=== PATIENT | female | born 1975 | race Caucasian/White ===

== ENCOUNTER 2016-11-30 15:30 | Emergency (ER) | payer OTHER ==
--- NOTE | 2016-11-30 16:17 | ED AMS/SEIZURE/WEAK/DIZZY ---
History of Present Illness General Chief Complaint: General Adult Stated Complaint: PT WAS SIB FOR BLOOD WORK AND MRI Source: patient Exam Limitations: no limitations Vital Signs & Intake/Output Vital Signs & Intake/Output Vital Signs Date Time Temp Pulse Resp B/P B/P Pulse O2 O2 Flow FiO2 Mean Ox Delivery Rate 11/30 1752 97.4 79 18 129/80 100 Room Air 11/30 1537 74 20 119/80 98 Allergies Coded Allergies: No Known Allergies (11/30/16) Reconcile Medications Ascorbate Calcium (Vitamin C) (Unknown Strength) TABLET (Unknown Dose) PO DAILY SUPPLEMENT (Reported) Cholecalciferol (Vitamin D3) (Vitamin D) (Unknown Strength) TABLET (Unknown Dose) PO DAILY SUPPLEMENT (Reported) Iodine (KELP) (Unknown Strength) TABLET (Unknown Dose) PO DAILY SUPPLEMENT ( Reported) Lactobacillus Acidophilus (Probiotic) (Unknown Strength) CAPSULE (Unknown Dose ) PO DAILY PROBIOTIC (Reported) Meclizine HCl 25 MG TABLET 1 TAB PO TIDPRN PRN dizziness Multivitamin (Multi-Day Vitamins) 1 EACH TABLET 1 TAB PO DAILY SUPPLEMENT ( Reported) [place]-3 Fatty Acids ([place]-3) (Unknown Strength) TAB.CHEW (Unknown Dose) PO DAILY SUPPLEMENT (Reported) ZINC (Unknown Strength) TABLET (Unknown Dose) PO DAILY SUPPLEMENT (Reported) Triage Note: PER PT SENT BY DR. VIVAR STARTED WITH DIZZYNESS LAST NIGHT WOKE UP THIS AM CONTINUES WITH SYMPTOMS, REPORTS DR VALENCIA LABS AND MRI. REPORTS LAST PERIOD WAS 3 WEEKS AGO NO NEURO DEFICITS, Triage Nurses Notes Reviewed? yes : No Patient currently breastfeeds: No HPI: This patient is a 41-year-old female who presented to the emergency department today sent in by Dr. VIVAR for evaluation of dizziness and headache. The patient reported that last night her symptoms began with intermittent dizziness. She reported that the dizziness was worse when laying on her side. She reported that when she sat up the dizziness resolved. She reported that her last episode of dizziness with approximately 2:00 this morning. The patient also reported some slightly blurry vision, worse when her glasses are not on. The patient reported that she is having a right-sided headache which seems to radiate into her right trapezius muscle. She reported that she does have a history of headaches and that this feels similar. She denied any lightheadedness, chest pain, difficulty breathing, abdominal pain, or vomiting. She did report associated nausea. Patient reported that her doctor would like to have blood work drawn as well as an MRI of her head. Past History Travel History Traveled to [place] past 21 day No Medical History Any Pertinent Medical History? see below for history Neurological: NONE EENT: NONE Cardiovascular: NONE Respiratory: NONE Gastrointestinal: NONE Hepatic: NONE Renal: NONE Musculoskeletal: NONE Psychiatric: NONE Endocrine: NONE Surgical History Surgical History: non-contributory Psychosocial History What is your primary language Latvian Tobacco Use: Never used Family History Hx Contributory? No Review of Systems Review of Systems Constitutional: Reports: no symptoms. EENTM: Reports: no symptoms. Respiratory: Reports: no symptoms. Cardiovascular: Reports: no symptoms. GI: Reports: see HPI. Genitourinary: Reports: no symptoms. Musculoskeletal: Reports: no symptoms. Skin: Reports: no symptoms. Neurological/Psychological: Reports: see HPI. All Other Systems: Reviewed and Negative Physical Exam Physical Exam General Appearance: well developed/nourished, no apparent distress, alert, awake Comments: Well-developed well-nourished person in no acute distress HEENT: Normal EENT exam, head normocephalic/atraumatic, moist mucous membranes PERRLA bilaterally. EOMI bilaterally with no nystagmus Neck: Supple, no lymphadenopathy. No midline tenderness. Right sided cervical paraspinal musculature tenderness to palpation. Full range of motion Back: Normal gait. Normal inspection Cardiovascular: Regular rate and rhythm with no murmurs, rubs, or gallops Respiratory: Chest nontender. No respiratory distress. Breath sounds clear to auscultation bilaterally Abdomen: Soft, nontender and nondistended Extremity: Normal and equal pulses. Neuro: Alert oriented x3, cranial nerves II through XII grossly intact. Skin: No appreciable rash on exposed skin, skin is warm and dry. Psych: Mood and affect is normal Core Measures ACS in differential dx? No CVA/TIA Diagnosis: No Severe Sepsis Present: No Septic Shock Present: No Progress Differential Diagnosis: arrythmia, alcohol intoxication, anemia, benign positional vertigo, CVA/stroke, dehydration, drug intoxication, encephalitis, electrolyte imbalance, GI bleed, hypoglycemia, intracranial Hem., intracranial mass/tumor, labrynthitis, meningitis, migraine TYLER, presyncope, vertebrobasilar insuff Plan of Care: Orders Procedure Date/time Status URINE 04/27 1617 Complete URINALYSIS 11/30 1616 Complete WESTERGREN SED RATE 11/30 161 Complete COMPREHENSIVE METABOLIC PANEL 11/30 1616 Complete CBC WITHOUT DIFFERENTIAL 11/30 1616 Complete Laboratory Tests 11/30/16 1649: Anion Gap 10, Estimated GFR > 60, BUN/Creatinine Ratio 18.3, Glucose 85, Calcium 9.0, Total Bilirubin 0.6, AST 25, ALT 42, Alkaline Phosphatase 71, Total Protein 6.9, Albumin 4.0, Globulin 2.9, Albumin/Globulin Ratio 1.4, CBC w Diff NO MAN DIFF REQ, RBC 5.13, MCV 85.4, MCH 28.4, RDW 13.3, MPV 7.9, Gran % 63.1, Lymphocytes % 31.1, Monocytes % 4.5, Eosinophils % 0.9, Basophils % 0.4, Absolute Granulocytes 7.3 H, Absolute Lymphocytes 3.6 H, Absolute Monocytes 0.5, Absolute Eosinophils 0.1, Absolute Basophils 0, PUBS MCHC 33.3, ESR Westergren 11 11/30/16 1631: Urine Color YEL, Urine Clarity CLEAR, Urine pH 6.0, Ur Specific Diggs >= 1.030 , Urine Protein NEG, Urine Ketones NEG, Urine Nitrite NEG, Urine Bilirubin NEG, Urine Urobilinogen 0.2, Ur Leukocyte Esterase NEG, Ur Microscopic EXAM NOT REQUIRED, Urine Hemoglobin NEG, Urine Glucose NEG, Urine Test NEGATIVE Diagnostic Imaging: Viewed by Me: CT Scan. Discussed w/RAD: CT Scan. Radiology Impression: PATIENT: MÓNICA SALGUERO PRESENT AGE: 41 PATIENT ACCOUNT NO: [id number] : 77 LOCATION: [facility] ORDERING PHYSICIAN: SOO DODD PA-C SERVICE DATE: 11/30/16 EXAM TYPE: CAT - CT HEAD WO IV CONTRAST EXAMINATION: CT HEAD WITHOUT CONTRAST CLINICAL INFORMATION: Evaluate for intracranial hemorrhage. Dizziness headache. COMPARISON: None TECHNIQUE: Contiguous axial imaging was performed from the skull base to vertex without intravenous administration of contrast. DLP: 529 mGy-cm FINDINGS: There is no evidence of acute intracranial hemorrhage or territorial infarction. No abnormal mass effect or midline shift is seen. Phillips to white matter differentiation is well preserved. No extra-axial fluid collections are identified. The ventricles are normal in size. There is no abnormal attenuation within the brain parenchyma. The osseous structures and soft tissues are normal. The mastoid air cells and visualized portions of the paranasal sinuses are well aerated. IMPRESSION: No acute intracranial pathology. DICTATED BY: THO PULIDO MD DATE/TIME DICTATED:11/30/161809 PRODUCTION CORRUGATOR:KOLTON DATE/TIME TRANSCRIBED:11/30/161809 CONFIDENTIAL, DO NOT COPY WITHOUT APPROPRIATE AUTHORIZATION. <Electronically signed in Other Vendor System> SIGNED BY: THO PULIDO MD 11/30/161825 Initial ED EKG: none Departure Departure Disposition: HOME OR SELF CARE Condition: Stable Clinical Impression Primary Impression: Vertigo Referrals: BINDU PARSON,GUERITA Vann (PCP/Family) Additional Instructions: Please follow-up with your primary care physician. Take meclizine as prescribed for dizziness. Rest and be sure to stay hydrated. Return for any worsening symptoms or concerns. Departure Forms: Customer Survey General Discharge Information Prescriptions: Current Visit Scripts Meclizine HCl 1 TAB PO TIDPRN PRN dizziness #12 TAB
[2016-11-30] MEDS ORDERED: MULTI-DAY VITA1 EACH PO (16:19)
[2016-11-30] MEDS ORDERED: VITAMIN C500 M6 PO (16:20)
[2016-11-30] MEDS ORDERED: KELP150 MCG PO (16:20)
[2016-11-30] MEDS ORDERED: ZINC50 M2 PO (16:20)
[2016-11-30] MEDS ORDERED: PROBIOTIC1 EACH PO (16:21)
[2016-11-30] MEDS ORDERED: OMEGA-3100 MG PO (16:21)
[2016-11-30] MEDS ORDERED: VITAMIN D2000 UNI1 PO (16:21)
[2016-11-30 16:57] LABS: ABSOLUTE BASOPHIL COUNT 0 /CUMM (0.0-0.2); ABSOLUTE EOSINOPHIL COUNT 0.1 /CUMM (0.0-0.7); ABSOLUTE GRANULOCYTE CT 7.3 /CUMM (1.4-6.5); ABSOLUTE LYMPH COUNT 3.6 /CUMM (1.2-3.4); ABSOLUTE MONOCYTE COUNT 0.5 /CUMM (0.10-0.60); BASOPHIL % 0.4 % (0.0-2.0); EOSINOPHIL % 0.9 % (0-5); GRANULOCYTE % 63.1 % (42.2-75.2); HEMATOCRIT 43.8 % (37-47); MEAN CORPUSCULAR HGB 28.4 PG (27.0-31.0); MEAN CORPUSCULAR HGB CONC 33.3 G/DL (33.0-37.0); MEAN CORPUSCULAR VOLUME 85.4 FL (81.0-99.0); MEAN PLATELET VOLUME 7.9 FL (7.4-10.4); PLATELET COUNT 344 /CUMM (130-400); RBC DISTRIBUTION WIDTH 13.3 % (11.5-14.5); RED BLOOD CELL CT 5.13 /CUMM (4.20-5.40); WHITE BLOOD CELL COUNT 11.6 /CUMM (4.8-10.8)
[2016-11-30 17:52] VITALS: BP 129/80
--- NOTE | 2016-11-30 18:26 | CT SCAN REPORT ---
EXAMINATION: CT HEAD WITHOUT CONTRAST CLINICAL INFORMATION: Evaluate for intracranial hemorrhage. Dizziness headache. COMPARISON: None TECHNIQUE: Contiguous axial imaging was performed from the skull base to vertex without intravenous administration of contrast. DLP: 529 mGy-cm FINDINGS: There is no evidence of acute intracranial hemorrhage or territorial infarction. No abnormal mass effect or midline shift is seen. Phillips to white matter differentiation is well preserved. No extra-axial fluid collections are identified. The ventricles are normal in size. There is no abnormal attenuation within the brain parenchyma. The osseous structures and soft tissues are normal. The mastoid air cells and visualized portions of the paranasal sinuses are well aerated. IMPRESSION: No acute intracranial pathology.
[2016-11-30] MEDS ORDERED: MECLIZINE HCL25 MG PO (18:40)
== END 2016-11-30 18:52 ==
LOC: ERH 15:30
PROVIDERS: Physician Assistant
DX: R42 Dizziness and giddiness (principal)
CPT/HCPCS: 81003; 81025